=== PATIENT | female | born 1960 | race Caucasian/White ===

== ENCOUNTER → 2020-05-07 | Outpatient (CLI) | payer BC, OTHER ==
[~2020-05-07] MED LIST: ATIVAN0.5 MG PO; CORTISPORIN CR7.5 G1 TOP; DAILY VALUE1 EACH PO; EFFEXOR XR75 MG PO; IRON325; NEULASTA6 MG/0.6 M SQ; PROCHLORPERAZINE5 M2 PO; VITAMIN D1000 UNI1 PO
== END ==
LOC: LAB 08:48
PROVIDERS: ATTEND Anesthesiology
DX: Z01.812 Encounter for preprocedural laboratory examination (principal); Z20.828 Contact with and (suspected) exposure to other viral communicable diseases